=== PATIENT | female | born 1985 | race American Indian/Alaskan Native ===

== ENCOUNTER 2019-02-10 17:43 | Emergency (ER) | payer SELFPAY ==
[2019-02-10 17:52] VITALS: BP 142/94
--- NOTE | 2019-02-10 17:52 | Event Note ---
ED Screening Note Date of service: 02/10/19 Time: 17:49 ED Screening Note: 33 y o female with PCOS at about 6 weeks presents with vaginnal spotting today and back pain ob: Dr Haim Lee obgyn This initial assessment/diagnostic orders/clinical plan/treatment(s) is/are subject to change based on patients health status, clinical progression and re- assessment by fellow clinical providers in the ED. Further treatment and workup at subsequent clinical providers discretion. Patient/guardian urged not to elope from the ED as their condition may be serious if not clinically assessed and managed. Initial orders include: ua,labs
[2019-02-10 18:37] LABS: Basophils # (Auto) 0.1 K/mm3 (0.0-0.1); Basophils % (Auto) 0.7 % (0.0-1.8); Eosinophils # (Auto) 0.2 K/mm3 (0.0-0.4); Eosinophils % (Auto) 1.6 % (0.0-4.3); Hemoglobin 14.5 gm/dl (10.1-14.3); Lymphocytes # (Auto) 4.2 K/mm3 (1.2-5.4); Mean Corpuscular HGB Conc 33 % (30-34); Mean Corpuscular Volume 91 fl (79-97); Monocytes # (Auto) 0.6 K/mm3 (0.0-0.8); Platelet Count 302 K/mm3 (140-440); Red Blood Count 4.84 M/mm3 (3.65-5.03); Red Cell Distribution Width 14.2 % (13.2-15.2)
[2019-02-10 18:37] LABS: Bilirubin,Urine NEG (Negative); Blood,Urine MOD (Negative); Color,Urine Yellow (Yellow); Protein,Urine <15 mg/dL mg/dL (Negative); Urobilinogen,Urine < 2.0 mg/dL (<2.0)
[2019-02-10] MEDS ORDERED: SODIUM CHLORIDE 0.9% 1000 ML 1,000 ML IV ONE (23:27)
[2019-02-10] MEDS ORDERED: ONDANSETRON 4 MG/2 ML INJ IV ONE (23:27)
--- NOTE | 2019-02-10 23:27 | Emergency Department Report ---
ED HPI - General Chief complaint: Vaginal Bleeding Stated complaint: 6WKS PREG/VAG BLEED BACK PAIN Time Seen by Provider: 02/10/19 21:58 Source: patient Mode of arrival: Ambulatory Limitations: No Limitations - History of Present Illness Initial comments: Pt is a 33 y o female with PCOS at about 6 weeks , who presents with vaginal spotting today and back pain. states vaginal spotting is resolved but 4/10 cramping continues. pt denies fever or chills, no concern for STI, no n/v , pt had transvaginal US with OB 2 days aago ob: Dr Haim Lee obgyn, bleeding with clots then spotting started today. MD Complaint: vaginal bleeding -: Sudden Location: abdomen Radiation: suprapubic Severity: moderate Severity scale (0 -10): 4 Quality: cramping Consistency: constant Improves with: none Worsens with: none Associated symptoms: vaginal bleeding Vaginal bleeding: light :: Yes Number of weeks : 6 OB History - Current : no complications OB History - Previous Pregnancies: no complications Last menstrual period: 12/05/18 Pre- care: followed by OB - Related Data : 3 Para: 2 Ab: 0 Previous Rx's Medication Instructions Recorded Last Taken Type Acetaminophen [Acetaminophen TAB] 1,000 mg PO Q6HR #30 tablet 02/11/19 Unknown Rx Allergies Allergy/AdvReac Type Severity Reaction Status Date / Time No Known Allergies Allergy Unverified 02/10/19 17:45 ED Review of Systems ROS: Stated complaint: 6WKS PREG/VAG BLEED BACK PAIN Other details as noted in HPI Constitutional: denies: chills, fever Eyes: denies: eye pain, eye discharge, vision change ENT: denies: ear pain, throat pain Respiratory: denies: cough, shortness of breath, wheezing Cardiovascular: denies: chest pain, palpitations Endocrine: no symptoms reported Gastrointestinal: abdominal pain. denies: nausea, vomiting Genitourinary: other (vaginal bleeding ). denies: urgency, dysuria, discharge Musculoskeletal: denies: back pain, joint swelling, arthralgia Skin: denies: rash, lesions Neurological: denies: headache, weakness, paresthesias Psychiatric: denies: anxiety, depression Hematological/Lymphatic: denies: easy bleeding, easy bruising ED Past Medical Hx - Past Medical History Previous Medical History?: No - Surgical History Past Surgical History?: No - Social History Smoking Status: Never Smoker Substance Use Type: None - Medications Home Medications: Home Medications Medication Instructions Recorded Confirmed Last Taken Type Acetaminophen [Acetaminophen TAB] 1,000 mg PO Q6HR #30 tablet 02/11/19 Unknown Rx ED Physical Exam - General Limitations: No Limitations General appearance: alert, in no apparent distress - Head Head exam: Present: atraumatic, normocephalic - Eye Eye exam: Present: normal appearance, PERRL, EOMI Pupils: Present: normal accommodation - ENT ENT exam: Present: mucous membranes moist - Neck Neck exam: Present: normal inspection, full ROM. Absent: tenderness - Respiratory Respiratory exam: Present: normal lung sounds bilaterally. Absent: respiratory distress, wheezes, stridor - Cardiovascular Cardiovascular Exam: Present: regular rate, normal heart sounds - GI/Abdominal GI/Abdominal exam: Present: soft, normal bowel sounds. Absent: distended, tenderness, guarding, rebound, rigid, bruit, hernia - Rectal Rectal exam: Present: deferred - Extremities Exam Extremities exam: Present: normal inspection - Back Exam Back exam: Present: normal inspection, full ROM. Absent: tenderness, CVA tenderness (R), CVA tenderness (L) - Neurological Exam Neurological exam: Present: alert, oriented X3, CN II-XII intact, normal gait, reflexes normal. Absent: motor sensory deficit - Psychiatric Psychiatric exam: Present: normal affect, normal mood - Skin Skin exam: Present: warm, dry, intact, normal color. Absent: rash ED Course Vital Signs 02/10/19 17:49 Temperature 98.5 F Pulse Rate 107 H Respiratory 18 Rate Blood Pressure 142/94 O2 Sat by Pulse 98 Oximetry ED Medical Decision Making - Lab Data Result diagrams: 02/10/19 18:15 Labs 02/10/19 02/10/19 02/10/19 18:09 18:15 18:15 WBC 11.8 H RBC 4.84 Hgb 14.5 H Hct 44.0 H MCV 91 MCH 30 MCHC 33 RDW 14.2 Plt Count 302 Lymph % (Auto) 36.0 H [place] % (Auto) 5.0 Eos % (Auto) 1.6 Baso % (Auto) 0.7 Lymph # 4.2 [place] # 0.6 Eos # 0.2 Baso # 0.1 Seg Neutrophils % 56.7 Seg Neutrophils # 6.7 HCG, Quant 494.6 H Urine Color Yellow Urine Turbidity Clear Urine pH 5.0 Ur Specific [place] 1.013 Urine Protein <15 mg/dl Urine Glucose (UA) Neg Urine Ketones 20 Urine Blood Mod Urine Nitrite Neg Urine Bilirubin Neg Urine Urobilinogen < 2.0 Ur Leukocyte Esterase Tr Urine WBC (Auto) 4.0 Urine RBC (Auto) 1.0 U Epithel Cells (Auto) 3.0 Blood Type 02/10/19 Unknown WBC RBC Hgb Hct MCV MCH MCHC RDW Plt Count Lymph % (Auto) [place] % (Auto) Eos % (Auto) Baso % (Auto) Lymph # [place] # Eos # Baso # Seg Neutrophils % Seg Neutrophils # HCG, Quant Urine Color Urine Turbidity Urine pH Ur Specific [place] Urine Protein Urine Glucose (UA) Urine Ketones Urine Blood Urine Nitrite Urine Bilirubin Urine Urobilinogen Ur Leukocyte Esterase Urine WBC (Auto) Urine RBC (Auto) U Epithel Cells (Auto) Blood Type O POSITIVE - Radiology Data Radiology results: report reviewed, image reviewed Ordering Physician: CARLOS ONEAL NP Date of Service: 02/10/19 Procedure(s): US OB transvaginal Accession Number(s): [id number] cc: CARLOS ONEAL NP EXAMINATION: Obstetrical Ultrasound, 02/10/2019 INDICATION: Vaginal bleeding in early COMPARISON: None FINDINGS: The uterus is mildly enlarged measuring 9.1 x 4.3 x 6.2 cm. The endometrial complex is heterogeneous and thickened to a maximum thickness of 1.4 cm. No intrauterine is visualized. The bilateral adnexal regions appear within normal limits. Doppler flow is de monstrated to both adnexal regions. There is no free pelvic fluid. IMPRESSION: 1. Thickened heterogeneous endometrium without evidence of intrauterine . Diagnostic considerations include failed or failing , too early to visualize, or less likely ectopic . Close clinical and laboratory follow-up is recommended. Signer Name: Christina Doan MD Signed: 02/11/2019 12:29 AM Workstation Name: [id number] Transcribed By: BRUNILDA Dictated By: Christina Doan MD Electronically Authenticated By: Christina Doan MD Signed Date/Time: 02/11/19 0029 DD/ TD/TT: - Medical Decision Making this is a miscarriage, US: no IUP, hc.6, there is no vaginal bleeding, H/H is normal, ABO: O positive, plan: dc to home pt will follow up with obgyn in 2-3 days. pt verbalized agreement and understanding of same. Critical care attestation.: If time is entered above; I have spent that time in minutes in the direct care of this critically ill patient, excluding procedure time. ED Disposition Clinical Impression: Miscarriage Disposition: DC-01 TO HOME OR SELFCARE Is pt being admited?: No Does the pt Need Aspirin: No Condition: Stable Instructions: Spontaneous Miscarriage (ED) Prescriptions: Acetaminophen [Acetaminophen TAB] 1,000 mg PO Q6HR #30 tablet Referrals: ALEC FONTAINE MD [Referring] - 3-5 Days Forms: Work/School Release Form(ED) Time of Disposition: 00:55
--- NOTE | 2019-02-11 00:33 | Ultrasound Report ---
EXAMINATION: Obstetrical Ultrasound, 02/10/2019 INDICATION: Vaginal bleeding in early COMPARISON: None FINDINGS: The uterus is mildly enlarged measuring 9.1 x 4.3 x 6.2 cm. The endometrial complex is heterogeneous and thickened to a maximum thickness of 1.4 cm. No intrauterine is visualized. The bilateral adnexal regions appear within normal limits. Doppler flow is demonstrated to both adnex al regions. There is no free pelvic fluid. IMPRESSION: 1. Thickened heterogeneous endometrium without evidence of intrauterine . Diagnostic consid erations include failed or failing , too early to visualize, or less likely ectopi c . Close clinical and laboratory follow-up is recommended. Signer Name: Christina Doan MD Signed: 02/11/2019 12:29 AM Workstation Name: [employer]
== END 2019-02-11 01:06 | disposition home or self-care (01) ==
LOC: ED 17:43
DX: O03.9 Complete or unspecified spontaneous abortion without complication (principal); Z3A.01 Less than 8 weeks gestation of pregnancy; Z79.899 Other long term (current) drug therapy
CPT/HCPCS: 36415; 76801; 76817; 81001; 84702; 85025; 86900; 86901; 99284; J7030; J2405

== ENCOUNTER 2019-06-08 08:30 | Outpatient (CLI) | payer BC ==
--- NOTE | 2019-06-08 11:04 | Ultrasound Report ---
FIRSTTRIMESTER OBSTETRIC ULTRASOUND HISTORY: , spotting 3 days ago. History of miscarriage in January 2019. COMPARISON: 02/10/2019. TECHNIQUE: Routine transabdominal OB ultrasound performed. FINDINGS: Uterus: Uterus measures 8.8 x 4.7 x 5.5 cm. There is a questionable 2.7 cm rounded isoechoic lesion within the posterior lower uterine segment. This is only seen on a single image and it is not clear i f it is a real finding. If so, it may represent a fibroid. Gestational Sac: Well-defined oval shape and intrauterine in location. The gestational sac measures 23.3 mm which would equate to an estimated gestational age of 7 weeks and 2 days. Yolk Sac: Normal in appearance. The yolk sac measures 7.6 mm which would equate to an estimated gesta tional age of 6 weeks and 5 days. Embryo: Visualized with cardiac activity of 115 bpm. Placenta: Too small for evaluation. Ovaries: The right ovary is normal in size and appearance with normal blood flow, measuring 2.9 x 2. 3 x 2.7 cm. The left ovary is normal in size and appearance with normal blood flow, measuring 3.9 x 2 x 2.9 cm. IMPRESSION Single live intrauterine with estimated gestational age of 7 weeks and 0 days. There is a questionable 2.7 cm rounded isoechoic lesion within the posterior lower uterine segment. T his is only seen on a single image and it is not clear if it is a real finding. If so, it may represe nt a fibroid. Attention to this area is recommended on follow-up imaging. Signer Name: Bob Pérez MD Signed: 06/08/2019 11:00 AM Workstation Name: [id number]
== END 2019-06-08 08:31 | disposition home or self-care (01) ==
LOC: US 08:30
PROVIDERS: ATTEND Obstetrics & Gynecology
DX: O20.0 Threatened abortion (principal); Z3A.01 Less than 8 weeks gestation of pregnancy
CPT/HCPCS: 76801; 76817

== ENCOUNTER 2019-11-30 08:12 | Outpatient (CLI) | payer BC ==
[2019-11-30 10:54] VITALS: BP 109/64
[2019-11-30] MEDS ORDERED: LACTATED RINGERS 1,000 ML IV ONE (11:42)
--- NOTE | 2019-11-30 12:33 | Ultrasound Report ---
Limited OB Ultrasound Biophysical profile ultrasound HISTORY: bpp, r/o placenta abruptio. TECHNIQUE: Grayscale and color imaging performed. COMPARISON: Ultrasound imaging from 06/08/2019 FINDINGS: There is a single viable intrauterine gestation with cephalic presentation and heart rate o f 149 bpm. Placenta is anterior/fundal in location. A few tiny internal echogenic foci are seen in th e placenta consistent with grade 1 morphology. No obvious abruption identified. On biophysical profile, the fetus received a score of 2 out of 2 for breathing, movement, posture/ton e, and qualitative BONNIE. Total score was 8 out of 8. IMPRESSION: 1. Single viable intrauterine gestation as outlined above. 2. Normal biophysical profile. Signer Name: Masoud Solano MD Signed: 11/30/2019 12:29 PM Workstation Name: [id number]
== END 2019-11-30 14:15 | disposition home or self-care (01) ==
LOC: TRG 08:12 → APU 08:13 → TRG 14:15
PROVIDERS: ATTEND Obstetrics & Gynecology
DX: O26.893 Other specified pregnancy related conditions, third trimester (principal); O47.03 False labor before 37 completed weeks of gestation, third trimester; Z3A.32 32 weeks gestation of pregnancy; W18.30XA Fall on same level, unspecified, initial encounter; Y92.89 Other specified places as the place of occurrence of the external cause; Y93.89 Activity, other specified; Y99.8 Other external cause status
CPT/HCPCS: 59025; 76815; 76819; 96360; J7120